=== PATIENT | male | born 1985 | race Hispanic/Latino ===

== ENCOUNTER 2021-02-01 03:22 | Emergency (ER) | payer SELFPAY ==
[~2021-02-01] VITALS: Ht 170.2 cm; Wt 77.0 kg
[2021-02-01] MEDS ORDERED: BACTRIM DS1 TAB PO (03:39)
[2021-02-01 04:10] VITALS: BP 133/87
== END 2021-02-01 04:21 | disposition home or self-care (01) | DRG 603 ==
LOC: ED 03:22
DX: L03.114 Cellulitis of left upper limb (principal); S60.415A Abrasion of left ring finger, initial encounter; X58.XXXA Exposure to other specified factors, initial encounter

== ENCOUNTER 2021-02-02 10:41 | Emergency (ER) | payer SELFPAY ==
[~2021-02-02] VITALS: Ht 170.2 cm; Wt 70.0 kg
[~2021-02-02 10:41] MED LIST: BACTRIM DS1 TAB PO
[2021-02-02 11:50] LABS: HEMATOCRIT 40.2 % (39.0-50.0); HEMOGLOBIN 13.6 g/dl (14.0-18.0); IMMATURE GRANULOCYTES 0.2 % (0.0-5.0); MEAN CORPUSCULAR HGB 31.1 pG CALC (26.0-32.0); MEAN CORPUSCULAR HGB CONC 33.8 g/dL CAL (32.0-36.0); NEUT# 8.11 thou/uL (1.82-7.42); RED BLOOD COUNT 4.37 mill/uL (4.70-6.10); RED CELL DISTRI WIDTH 12.2 % (11.5-15.5)
[2021-02-02 12:04] LABS: ALBUMIN 3.6 g/dL (3.2-5.0); ALKALINE PHOSPHATASE 99 u/l (38-126); ANION GAP 11 (6-22 (CALC)); BILIRUBIN, TOTAL 0.6 mg/dL (0.0-1.4); BUN 15 mg/dL (9-20); BUN/CREATININE RATIO 15 (12-20 (CALC)); CARBON DIOXIDE 24 mmol/l (22-30); CHLORIDE 107 mmol/l (95-108); GFR > 60 ML/MIN (>=60 (CALC)); GFR FOR AFR.AMER. > 60 ML/MIN (>=60 (CALC)); POTASSIUM 3.8 mmol/l (3.5-5.1); SGOT/AST 35 u/l (17-59); SODIUM 137 mmol/l (137-146); TOTAL PROTEIN 6.6 g/dL (6.3-8.2)
[2021-02-02 20:20] VITALS: BP 130/82
== END 2021-02-02 20:30 | DRG 603 ==
LOC: ED 10:41
DX: L03.012 Cellulitis of left finger (principal); L03.114 Cellulitis of left upper limb